=== PATIENT | male | born 1990 | race Hispanic/Latino ===

== ENCOUNTER 2018-02-26 20:47 | Emergency (ER) | payer SELFPAY | END 2018-02-26 21:41 | disposition home or self-care (01) | LOC: EDH 20:47 | DX: S02.5XXA Fracture of tooth (traumatic), initial encounter for closed fracture (principal); X58.XXXA Exposure to other specified factors, initial encounter; Y93.89 Activity, other specified; Y92.89 Other specified places as the place of occurrence of the external cause; Y99.8 Other external cause status ==

== ENCOUNTER 2021-01-02 21:07 | Emergency (ER) | payer OTHER ==
[2021-01-02] MEDS ORDERED: ERYTHROMYCIN BASE 0.5% OPHTH OINT 1 GM TUBE ONE (21:52)
== END 2021-01-03 01:24 | disposition home or self-care (01) ==
LOC: EDH 21:07
DX: H10.9 Unspecified conjunctivitis (principal)
CPT/HCPCS: 70450